=== PATIENT | male | born 1970 | race Caucasian/White ===

== ENCOUNTER 2017-09-29 13:14 | Observation (INO) ==
[2017-09-29 13:47] LABS: Basophils # 0.1 K/mcL (0.0-0.2); Basophils % 0.6 %; Eosinophils # 0.2 K/mcL (0.0-0.6); Hematocrit 43.1 % (37.5-50.1); Immature Granulocytes % 0.5 % (0-4); Lymphocytes # 1.3 K/mcL (0.6-4.6); Lymphocytes % 11.8 %; Mean Corpuscular HGB Conc 34.8 g/dL (31.6-35.5); Mean Corpuscular Hemoglobin 32.3 pg (28.0-33.3); Mean Corpuscular Volume 92.7 fL (83.0-100.0); Mean Platelet Volume 10.2 fL (9.4-12.4); Monocytes # 0.8 K/mcL (0.0-1.3); Monocytes % 7.6 %; Neutrophils # 8.2 K/mcL (1.6-8.9); Platelet Count 242 K/mcL (140-400); Red Blood Count 4.65 M/mcL (4.19-5.50); Red Cell Distribution Width 12.3 % (11.5-14.5); Segmented Neutrophils % 77.5 %
[2017-09-29 13:53] LABS: Prothrombin Time 10.6 Seconds (9.4-12.1)
[2017-09-29 13:56] LABS: Activated Partial Thrombo Time 31.8 Seconds (26.0-36.0)
--- NOTE | 2017-09-29 14:03 | Emergency Department Note ---
Disposition Clinical Impression: Symptomatic bradycardia Syncope Qualifiers: Syncope type: unspecified Qualified Code(s): R55 - Syncope and collapse Disposition: Admitted As Inpatient Condition: Good Referrals: NONE,PCP [Primary Care Provider] - Radha Estrada [Family Provider] - Forms: ED Satisfaction Letter Time of Disposition: 14:30 General Adult HPI - General Chief complaint: ED Syncope Stated complaint: syncope Time Seen by Provider: 09/29/17 13:16 Source: patient, family Limitations: altered mental status Nursing Notes Reviewed: Yes Vital Signs Reviewed: Yes - History of Present Illness HPI Narrative: Mr. Noel is a very pleasant 46-year-old gentleman who presents to the [facility] emergency department with chief complaint of syncope. at bedside reports that at approximately 11:30 AM patient was sitting on a couch and was feeling lightheaded and decided to go lay down on the bed. When he was walking to the bedroom patient fell to the ground and had a syncopal episode. Patient denies any presyncopal complaints such as headache, change in vision, chest pain, palpitations, nausea, vomiting. Patient does not remember this event. His only complaint at this time is dyspnea. No fevers, cough or recent sick contacts. Patient was purposely seen and evaluated at emergency department earlier this week on Tuesday and recommended hospital admission for further evaluation for suspected cardiac etiology. At that time, patient did decline further admission and was discharged home with cardiology follow-up. Patient is scheduled to see the manager of manufacturing this month. She does not take any prescribed medications at this time. Patient smokes 2-3 packs per day and reports occasional EtOH abuse. No illicit use. No other complaints at this time. Pain Scale: 6 - Related Data Home Medications Medication Instructions Recorded Confirmed Escitalopram [Lexapro] 10 mg PO DAILY 09/29/17 09/29/17 Gabapentin [Neurontin] 300 mg PO TID PRN 09/29/17 09/29/17 Pantoprazole Sodium [Protonix] 40 mg PO DAILY 09/29/17 09/29/17 Tramadol HCl [Ultram] 50 mg PO TID PRN 09/29/17 09/29/17 Allergies Allergy/AdvReac Type Severity Reaction Status Date / Time No Known Allergies Allergy Verified 09/29/17 15:01 Review of Systems: Constitutional: No fever Vision: No blurred vision ENT: No rhinorrhea Respiratory: No cough Cardiovascular: No chest pain Allergic: No allergies : No blood in urine GI: No blood in stool Hematologic: No bruising Dermatologic: No skin rash Musculoskeletal: No pain in the extremities Neuro: No numbness of the extremities Past Medical History - Past Medical History Medical history: Reports: no medical history, other Psychiatric history: Reports: anxiety - Social History Smoking Status: Current every day smoker Smokeless Tobacco Status: No Alcohol use: Reports: occasionally, heavy Drug use: Reports: marijuana Physical Exam CONSTITUTIONAL: Alert and oriented X3 in no apparent distress, HEAD: Normocephalic; atraumatic. EYES: Ocular movements grossly intact, no scleral icterus, no drainage, no conjunctival injection Oropharynx: pink/moist RESP: NRD without use of accessory musculature, CTA b/l with no wheezes/rales/ rhonchi CARD: Regular rhythm, without murmurs, rubs, or gallop ABD: grossly normal, soft, non-tender, no guarding/distention/rigidity SKIN: normal appearance, no pallor/diaphoresis,mottling,jaundice,cyanosis EXT: PT pulses 2+ and symmetrical; no lateralizing edema; no other lesions seen PSYCH: appropriate mood/affect - General Limitations: altered mental status General appearance: lethargic Course Course Narrative: Patient was seen and examined at bedside. Vital signs were reviewed and showed sinus bradycardia with heart rate in the 50s. Physical examination demonstrates a drowsy individual but is alert and oriented 3. He has only complaints are at this time her dyspnea. Further examination was unremarkable. Will proceed with 12 lead EKG, chest x-ray, BMP, CBC, troponin, coags. Disposition pending. 1426: EKG demonstrates sinus bradycardia. CBC, BMP, troponin and coags are all unremarkable. Chest x-ray shows no acute process. Heart rate is in the 40s to 50s at this time. Given this patient's history and presentation of 2 single episodes this past week recommended patient be admitted for observation and further cardiology workup for symptomatic bradycardia. CT head pending. Hospitalist will be paged. This disposition plan was discussed the patient understands and agrees. 1600: CT of the head shows no acute process. Discussed the case with hospitalist, Dr. Dyson, who will accept patient for admission. No further recommendations per hospital team. Vital Signs Temperature 97.7 F 05/03/18 13:20 Pulse Rate 56 09/29/17 13:20 Respiratory Rate 16 09/29/17 13:20 Blood Pressure 108/78 09/29/17 13:20 O2 Sat by Pulse Oximetry 100 09/29/17 13:20 Temperature 97.7 F 09/29/17 13:20 Pulse Rate 56 09/29/17 13:20 Respiratory Rate 16 09/29/17 13:20 Blood Pressure 108/78 09/29/17 13:20 O2 Sat by Pulse Oximetry 100 09/29/17 13:32 Oxygen Delivery Oxygen Delivery Room Air Medical Decision Making - Medical Records Medical records reviewed: Yes I reviewed the patient's medical records. - Lab Data Lab results reviewed: Yes I reviewed the patient's lab results. Result diagrams: 09/29/17 13:32 09/29/17 13:32 Lab Results 09/29/17 09/29/17 09/29/17 Range/Units 13:19 13:32 13:32 WBC 10.6 (4.3-11.1) K/mcL RBC 4.65 (4.19-5.50) M/mcL Hgb 15.0 (12.9-16.9) g/dL Hct 43.1 (37.5-50.1) % MCV 92.7 (83.0-100.0) fL MCH 32.3 (28.0-33.3) pg MCHC 34.8 (31.6-35.5) g/dL RDW 12.3 (11.5-14.5) % Plt Count 242 (140-400) K/mcL MPV 10.2 (9.4-12.4) fL Immature Gran % 0.5 (0-4) % Seg Neutrophils % 77.5 % Lymphocytes % 11.8 % Monocytes % 7.6 % Eosinophils % 2.0 % Basophils % 0.6 % Neutrophils # 8.2 (1.6-8.9) K/mcL Lymphocytes # 1.3 (0.6-4.6) K/mcL Monocytes # 0.8 (0.0-1.3) K/mcL Eosinophils # 0.2 (0.0-0.6) K/mcL Basophils # 0.1 (0.0-0.2) K/mcL PT 10.6 (9.4-12.1) Seconds INR 1.0 APTT 31.8 (26.0-36.0) Seconds Sodium (136-145) mEq/L Potassium (3.5-5.1) mEq/L Chloride (98-107) mEq/L Carbon Dioxide (23-29) mEq/L BUN (6-20) mg/dL Creatinine (0.70-1.30) mg/dL Est GFR ( Amer) (> 60) Est GFR (Non-Af Amer) (> 60) BUN/Creatinine Ratio (6-26) Glucose (70-105) mg/dL POC Glucose 105 H (70-99) mg/dL Calculated Osmolality (280-300) Calcium (8.6-10.3) mg/dL Troponin I (< 0.04) ng/mL 09/29/17 Range/Units 13:32 WBC (4.3-11.1) K/mcL RBC (4.19-5.50) M/mcL Hgb (12.9-16.9) g/dL Hct (37.5-50.1) % MCV (83.0-100.0) fL MCH (28.0-33.3) pg MCHC (31.6-35.5) g/dL RDW (11.5-14.5) % Plt Count (140-400) K/mcL MPV (9.4-12.4) fL Immature Gran % (0-4) % Seg Neutrophils % % Lymphocytes % % Monocytes % % Eosinophils % % Basophils % % Neutrophils # (1.6-8.9) K/mcL Lymphocytes # (0.6-4.6) K/mcL Monocytes # (0.0-1.3) K/mcL Eosinophils # (0.0-0.6) K/mcL Basophils # (0.0-0.2) K/mcL PT (9.4-12.1) Seconds INR APTT (26.0-36.0) Seconds Sodium 136 (136-145) mEq/L Potassium 3.7 (3.5-5.1) mEq/L Chloride 104 (98-107) mEq/L Carbon Dioxide 24 (23-29) mEq/L BUN 14 (6-20) mg/dL Creatinine 0.91 (0.70-1.30) mg/dL Est GFR ( Amer) > 60 (> 60) Est GFR (Non-Af Amer) > 60 (> 60) BUN/Creatinine Ratio 15 (6-26) Glucose 105 (70-105) mg/dL POC Glucose (70-99) mg/dL Calculated Osmolality 283 (280-300) Calcium 9.4 (8.6-10.3) mg/dL Troponin I < 0.03 (< 0.04) ng/mL - Radiology Data Radiology results reviewed: Yes I reviewed the patient's radiology results. Chest X-Ray 09/29/17 13:25 IMPRESSION: No acute cardiopulmonary pathology. D/ / Delvin Cabrera MD / Delvin Cabrera MD Interpreting Provider: Delvin Cabrera MD - EKG Data EKG #1 EKG attestation: Yes I reviewed and interpreted this EKG. EKG results narrative: Heart rate 56, VT 156, QRS 110 EC for 30 consistent with sinus bradycardia. No evidence of any T-wave or ST wave abnormalities. There is no old EKG for comparison. Attestation Statement - Attestation Attestation: I, Lukas Shepard DO, examined this patient [id number] and my medical decision-making was reviewed with Oscar Mcallister PGY-1, Resident Physician. I agree with the documented findings, disposition and treatment plan as described except to the extent set forth below. Please see my progress notes for details.
[2017-09-29 14:14] LABS: BUN/Creatinine Ratio 15 (6-26); Blood Urea Nitrogen 14 mg/dL (6-20); Calcium 9.4 mg/dL (8.6-10.3); Carbon Dioxide 24 mEq/L (23-29); Chloride 104 mEq/L (98-107); Glucose 105 mg/dL (70-105); Osmolality,Calculated 283 (280-300); Potassium 3.7 mEq/L (3.5-5.1); Sodium 136 mEq/L (136-145); Troponin I < 0.03 ng/mL (< 0.04); eGFR For African Americans > 60 (> 60); eGFR For Non-African Americans > 60 (> 60)
--- NOTE | 2017-09-29 14:37 | Emergency Department Note ---
Disposition Clinical Impression: Symptomatic bradycardia Syncope Qualifiers: Syncope type: unspecified Qualified Code(s): R55 - Syncope and collapse Disposition: Admitted As Inpatient Condition: Fair Referrals: NONE,PCP [Primary Care Provider] - Radha Estrada [Family Provider] - Forms: ED Satisfaction Letter Time of Disposition: 14:42 General Adult HPI - General Chief complaint: ED Syncope Stated complaint: syncope Time Seen by Provider: 09/29/17 13:16 Source: patient, family Limitations: altered mental status - History of Present Illness Pain Scale: 6 Past Medical History - Past Medical History Medical history: Reports: no medical history, other Psychiatric history: Reports: anxiety - Social History Smoking Status: Current every day smoker Smokeless Tobacco Status: No Alcohol use: Reports: occasionally, heavy Drug use: Reports: marijuana Physical Exam - General Limitations: altered mental status General appearance: lethargic Course Vital Signs Temperature 97.7 F 09/29/17 13:20 Pulse Rate 56 09/29/17 13:20 Respiratory Rate 16 09/29/17 13:20 Blood Pressure 108/78 09/29/17 13:20 O2 Sat by Pulse Oximetry 100 09/29/17 13:20 Temperature 97.7 F 09/29/17 13:20 Pulse Rate 56 09/29/17 13:20 Respiratory Rate 16 09/29/17 13:20 Blood Pressure 108/78 09/29/17 13:20 O2 Sat by Pulse Oximetry 100 09/29/17 13:32 Oxygen Delivery Oxygen Delivery Room Air Medical Decision Making - Lab Data Result diagrams: 09/29/17 13:32 09/29/17 13:32 Lab Results 09/29/17 09/29/17 09/29/17 Range/Units 13:19 13:32 13:32 WBC 10.6 (4.3-11.1) K/mcL RBC 4.65 (4.19-5.50) M/mcL Hgb 15.0 (12.9-16.9) g/dL Hct 43.1 (37.5-50.1) % MCV 92.7 (83.0-100.0) fL MCH 32.3 (28.0-33.3) pg MCHC 34.8 (31.6-35.5) g/dL RDW 12.3 (11.5-14.5) % Plt Count 242 (140-400) K/mcL MPV 10.2 (9.4-12.4) fL Immature Gran % 0.5 (0-4) % Seg Neutrophils % 77.5 % Lymphocytes % 11.8 % Monocytes % 7.6 % Eosinophils % 2.0 % Basophils % 0.6 % Neutrophils # 8.2 (1.6-8.9) K/mcL Lymphocytes # 1.3 (0.6-4.6) K/mcL Monocytes # 0.8 (0.0-1.3) K/mcL Eosinophils # 0.2 (0.0-0.6) K/mcL Basophils # 0.1 (0.0-0.2) K/mcL PT 10.6 (9.4-12.1) Seconds INR 1.0 APTT 31.8 (26.0-36.0) Seconds Sodium (136-145) mEq/L Potassium (3.5-5.1) mEq/L Chloride (98-107) mEq/L Carbon Dioxide (23-29) mEq/L BUN (6-20) mg/dL Creatinine (0.70-1.30) mg/dL Est GFR ( Amer) (> 60) Est GFR (Non-Af Amer) (> 60) BUN/Creatinine Ratio (6-26) Glucose (70-105) mg/dL POC Glucose 105 H (70-99) mg/dL Calculated Osmolality (280-300) Calcium (8.6-10.3) mg/dL Troponin I (< 0.04) ng/mL 09/29/17 Range/Units 13:32 WBC (4.3-11.1) K/mcL RBC (4.19-5.50) M/mcL Hgb (12.9-16.9) g/dL Hct (37.5-50.1) % MCV (83.0-100.0) fL MCH (28.0-33.3) pg MCHC (31.6-35.5) g/dL RDW (11.5-14.5) % Plt Count (140-400) K/mcL MPV (9.4-12.4) fL Immature Gran % (0-4) % Seg Neutrophils % % Lymphocytes % % Monocytes % % Eosinophils % % Basophils % % Neutrophils # (1.6-8.9) K/mcL Lymphocytes # (0.6-4.6) K/mcL Monocytes # (0.0-1.3) K/mcL Eosinophils # (0.0-0.6) K/mcL Basophils # (0.0-0.2) K/mcL PT (9.4-12.1) Seconds INR APTT (26.0-36.0) Seconds Sodium 136 (136-145) mEq/L Potassium 3.7 (3.5-5.1) mEq/L Chloride 104 (98-107) mEq/L Carbon Dioxide 24 (23-29) mEq/L BUN 14 (6-20) mg/dL Creatinine 0.91 (0.70-1.30) mg/dL Est GFR ( Amer) > 60 (> 60) Est GFR (Non-Af Amer) > 60 (> 60) BUN/Creatinine Ratio 15 (6-26) Glucose 105 (70-105) mg/dL POC Glucose (70-99) mg/dL Calculated Osmolality 283 (280-300) Calcium 9.4 (8.6-10.3) mg/dL Troponin I < 0.03 (< 0.04) ng/mL Attestation Statement - Attestation Attestation: I, Lukas Shepard DO, examined this patient [id number] and my medical decision-making was reviewed with Oscar Mcallister PGY-1, Resident Physician. I agree with the documented findings, disposition and treatment plan as described except to the extent set forth below. Please see my progress notes for details. 46-year-old male presents to the emergency room for evaluation of syncopal event. Patient has been seen once within the last week and was recommended to be admitted but he declined again set recommendation at outside facility. Patient was at this morning and had prodromal symptoms including some lightheadedness dizziness and tunnel vision. He then passed out. Does not remember the events. On arrival here his vital signs remained stable outside of stable sinus bradycardia. His blood pressure stable in transport his Accu- Chek was normal. On presentation here the patient is resting comfortably in the bed is in no distress he denies any other symptoms or complaints. Head is atraumatic pupils are equal round reactive extraocular muscles are intact. Lungs are clear to auscultation heart is regular but bradycardic abdomen is soft nontender nondistended with no guarding no rigidity no peritoneal symptoms. Patient denies any substance abuse or drugs of abuse at this time. He moves all 4 of his extremities with appropriate sensation and motor function. Patient does not have any acute pathology noted at this time on examination. CT imaging of the head chest x-ray EKG labs including CBC chemistry and troponin will be ordered along with the lecture lites and thyroid. Patient will most require admission secondary to a outpatient failure management as well as a repeat syncopal event of unknown etiology. Patient is low risk for intracranial pathology did not hit his head and has no pain at this point. Disposition pending the full workup and evaluation. See detailed documentation of the physical exam, medical intervention, medical decision- making and disposition in the resident physician's note. Care provider patient' s treatment course at this time 1425 Patient has negative workup at this time chest x-ray stable. Blood pressures been normal. Heart rate is fluctuated from 42-56 bpm. Symptoms at this point appear to be concerning for symptomatic bradycardia causing syncope here today. Patient was advised we will recommend admission for further evaluation cardiac treatment. He is comfortable this plan. Patient will be admitted to hospitals. Lengthy discussion will be had with the presentation symptoms and history. Patient is otherwise stable. Hospitals except without any other recommendations at this time.
--- NOTE | 2017-09-29 16:31 | Internal Med History&Physical ---
Date of Encounter: 09/29/17 Time of Encounter: 16:28 Internal Medicine - H&P: HPI Chief complaint: syncope Admitted From: Emergency Dept Plans for Post Hospital Care: Home History of present illness: Mr. Noel is a 46 year old male Patient with no significant medical problem except for anxiety and smoking history Ppatient second presented to emergency room for syncope patient stated he has been feeling very lightheaded and very tired lately and had passed out and came to emergency room evaluated and then discharged he again today felt lightheaded and dizzy today and then passed out for a few minutes and then presented emergency room denies any chest pain no seizure activity no prior history of seizure In emergency room heart rate is in the low 50s blood pressure low 100. Labs unremarkable patient will be admitted for further evaluation of syncope. Past Med Surg Social Fam HX - Past Medical History Medical history: no medical history, other Psychiatric history: anxiety - Social History Smoking Status: Current every day smoker Smokeless Tobacco Status: No Alcohol use: occasionally, heavy Drug use: marijuana Internal Medicine - H&P: Meds Escitalopram [Lexapro] 10 mg PO DAILY 09/29/17 [History] Gabapentin [Neurontin] 300 mg PO TID PRN 09/29/17 [History] Pantoprazole Sodium [Protonix] 40 mg PO DAILY 09/29/17 [History] Tramadol HCl [Ultram] 50 mg PO TID PRN 09/29/17 [History] 3 Allergy/AdvReac Type Severity Reaction Status Date / Time No Known Allergies Allergy Verified 09/29/17 15:01 All Systems PM: A 10-system review of systems was performed and is negative for pertinent findings except as documented above in the HPI. - Constitutional Constitutional: no chills, no fever(s), no night sweats - EENT Eyes: no change in vision, no discharge, no pain, no photophobia Ears: no ear discharge, no ear pain, no tinnitus Nose, mouth and throat: no dysphagia, no nasal discharge, no neck pain, no sore throat - Cardiovascular Cardiovascular ROS IM: syncope - Respiratory Respiratory: no cough, no dyspnea, no wheezing, no excessive phlegm production - Gastrointestinal Gastrointestinal: no abdominal pain, no diarrhea, no hematemesis, no hematochezia, no melena, no nausea, no vomiting - Musculoskeletal Musculoskeletal ROS IM: no numbness, no tingling - Integumentary Integumentary IM: no rash, no unusual bruising - Neurological Neurological ROS: no confusion, no convulsions, no focal weakness, no numbness, no tingling, no tremor(s) - Constitutional Vitals: Temp Pulse Resp BP Pulse Ox 97.7 F 53 15 104/73 97 09/29/17 13:20 09/29/17 16:01 09/29/17 16:01 09/29/17 16:01 09/29/17 16:01 - Head Head exam: Present: atraumatic, normocephalic - Eye Eye exam: Present: PERRL, conjuntiva pink, sclera anicteric Pupils: Present: PERRL - Neck Neck exam general surgery: Present: supple, trachea midline. Absent: lymphadenopathy - Respiratory Respiratory exam: Present: CTAB. Absent: accessory muscle use, rales, rhonchi, wheezes - Cardiovascular Cardiovascular exam: Present: RRR, +S1, +S2. Absent: diastolic murmur, gallop, rubs, systolic murmur - GI/Abdominal GI/Abdominal exam: Present: normal bowel sounds, soft, no peritoneal signs. Absent: distended, tenderness - Extremities Exam Extremities exam: Present: warm, radial pulses palpable and symmetrical. Absent : calf tenderness, cyanotic, pedal edema - Neurological Exam Neurological exam: Present: CN II-XII intact, oriented X3, no focal deficits. Absent: pronater drift, facial droop, speech deficit - Skin Skin exam: Present: dry, intact Internal Med - H&P Results - Labs CBC & Chem 7: 09/29/17 13:32 09/29/17 13:32 - Assessment and plan (1) Bradycardia Current Visit: Yes Status: Acute Assessment and plan: Sinus bradycardia unclear if any relationship to syncope will check thyroid profile and continue to monitor may need outpatient Holter monitor (2) Syncope Current Visit: Yes Status: Acute Assessment and plan: Presentation that is suggestive of vasodepressive syncope versus orthostatic hypotension blood pressure is low 100 patient had prodromal symptoms of lightheadedness and feeling tired in the last few weeks Clinically given IV hydration and monitor check orthostatic blood pressure Qualifiers: Syncope type: unspecified Qualified Code(s): R55 - Syncope and collapse (3) Anxiety Current Visit: Yes Status: Chronic Assessment and plan: Chronic we will resume home medication - Time Spent With Patient Total time spent is greater than 50% in coordination of care (as documented) at patient's floor/unit and/or counseling patient:
[2017-09-29] MEDS ORDERED: traMADol 50 MG TABLET PO PRN (16:35)
[2017-09-29] MEDS ORDERED: Acetaminophen 325 MG TABLET PO PRN (16:35)
[2017-09-29] MEDS ORDERED: Naloxone 0.4 MG/ML INJ IVP PRN (16:35)
[2017-09-29] MEDS ORDERED: Gabapentin 300 MG CAPSULE PO PRN (16:38)
[2017-09-29 17:00] LABS: Thyroid Stimulating Hormone 1.895 mcIU/mL (0.340-5.600)
[2017-09-29] MEDS: 0.9 % Sodium Chloride 1,000 ML IVC SCH (18:30)
[2017-09-30 01:50] LABS: Alanine Aminotransferase 15 Units/L (7-52); Albumin 4.2 g/dL (3.5-5.7); Albumin/Globulin Ratio 1.7 (1.1-2.2); Alkaline Phosphatase 57 Units/L (34-104); Aspartate Amino Transferase 17 Units/L (13-39); BUN/Creatinine Ratio 16 (6-26); Bilirubin,Total 0.4 mg/dL (0.3-1.0); Blood Urea Nitrogen 15 mg/dL (6-20); Calcium 9.1 mg/dL (8.6-10.3); Carbon Dioxide 26 mEq/L (23-29); Chloride 107 mEq/L (98-107); Chol/HDL Ratio 3.7 (0-4.9); Cholesterol 158 mg/dL (< 200); Globulin 2.5 g/dL (2.4-3.5); Glucose 100 mg/dL (70-105); HDL Cholesterol 43 mg/dL (40-59); LDL Cholesterol,Calculated 94 mg/dL (0-99); Magnesium 2.1 mg/dL (1.6-2.6); Osmolality,Calculated 289 (280-300); Potassium 4.2 mEq/L (3.5-5.1); Sodium 139 mEq/L (136-145); Total Protein 6.7 g/dL (6.4-8.9); Triglycerides 103 mg/dL (< 150); eGFR For African Americans > 60 (> 60); eGFR For Non-African Americans > 60 (> 60)
[2017-09-30] MEDS: 0.9 % Sodium Chloride 1,000 ML IVC SCH (04:46)
--- NOTE | 2017-09-30 09:00 | Electrocardiograph Report ---
[address] [place], [place] [address] Test Date: 2017-09-29 Pat Name: Andrew Noel Department: 104 Room: 3B Gender: M Third Rigger: FAY : 1970 Requested By: Gerber Mcallister Order Number: [id number] Reading MD: Aubrey Cohen Measurements Intervals Kenna Rate: 56 P: 7 OK: 156 QRS: 59 QRSD: 110 T: 59 QT: 439 QTc: 430 Interpretive Statements SINUS BRADYCARDIA BASELINE ARTIFACT Electronically Signed On 09-30-2017 8:58:22 EDT by Aubrey Cohen
[2017-09-30] MEDS ORDERED: Regadenoson 0.4 MG/5 ML SYRINGE IVP ONE (12:03)
--- NOTE | 2017-09-30 12:48 | Cardiology Consult Note ---
<Yao Rosario - Last Filed: 09/30/17 12:40> Date of Encounter: 09/30/17 Time of Encounter: 12:40 Assessment and Plan (1) Chest pain Current Visit: Yes Status: Acute Admits to exertional chest pain at times. He also has experienced two syncopal events. EKG shows sinus bradycardia. No acute ST changes. Cardiac risk factors include tobacco use and prior heavy ETOH use. TTE reviewed- preserved EF. Recommend stress test. Unable to ambulate on treadmill due to a nail in his foot. Qualifiers: Chest pain type: unspecified Qualified Code(s): R07.9 - Chest pain, unspecified (2) Bradycardia Current Visit: Yes Status: Acute HR in the 50's noted. AVg HR 52 bpm. HE as low as 37 bpm noted during nocturnal hours. No pauses or heart block seen, Unclear if symptoms are from bradycardia. TSH normal. Avoid a AV delgado lamin. Consider holter at discharge. (3) Syncope Current Visit: Yes Status: Acute S/p witness syncopal event and possible second event. TTE shows preserved EF. No significant valvular disease. Orthostatic vital negative. Noted to have sinus bradycardia. HR in the 50's. Unclear if related. Consider holter at discharge. Stress test ordered for c/o chest pain. Possible vasovagal event, patient in pain due to stepping on nail at time of event. Qualifiers: Syncope type: unspecified Qualified Code(s): R55 - Syncope and collapse Discussion w patient/family: The assessment and plan as outlined above was discussed with the patient and/or family members who expressed understanding and agreement. All questions were answered. Thank you for involving us in the care of your patient. Please call with any questions. History of Present Illness Consult date: 09/30/17 Requesting physician: Rachel Vargas Consult reason: syncope Chief complaint: syncope History of present illness: Mr. Noel is a 46 year old male with past medical history of tobacco use and cervical stenosis who presented after passing out at home. On 09/26/17 he was sitting in a chair after stepping on a nail when he started to feel unwell and lightheaded. He passed out and feel on the floor. The episode was witnessed by a friend. He did go to [facility] and had EKG and CTA that showed no concerning findings. Per [facility] medical report he was noted to have HR 45- 60 bpm. Yesterday he says he laid down due to feeling lightheaded after eating a sandwich and felt like he passed out. He also c/o dizziness when bending over or standing up to quickly. He c/o intermittent chest pressure with exertional activity that is relieved with rest. C/o increasing fatigue and decreased activity tolerance. Past Med Surg Social Fam HX - Past Medical History Medical history: no medical history, other Psychiatric history: anxiety - Social History Smoking Status: Current every day smoker Packs per day: 1-2 Smokeless Tobacco Status: No Alcohol use: occasionally, heavy Drug use: marijuana Medications and Allergies Escitalopram [Lexapro] 10 mg PO DAILY 09/29/17 [History] Gabapentin [Neurontin] 300 mg PO TID PRN 09/29/17 [History] Pantoprazole Sodium [Protonix] 40 mg PO DAILY 09/29/17 [History] Tramadol HCl [Ultram] 50 mg PO TID PRN 09/29/17 [History] 3 Allergy/AdvReac Type Severity Reaction Status Date / Time No Known Allergies Allergy Verified 09/29/17 15:01 All Systems Review: The remainder of the systems were reviewed and are negative Physical Examination Vital Signs, Last 4 Hours Temp Pulse Resp BP Pulse Ox 09/30/17 10:50 97.6 F 54 15 107/70 96 General: Conversant, No Apparent Distress HEENT: Atraumatic, Normocephaly, Mucus Membranes Moist Neck: No JVD, Normal carotid pulses Cardiac: Reg Rate and Rhythm, Normal S1 and S2, No Murmur Lungs: Normal Breath Sounds, No Wheeze, Rales, Rhonchi Neuro: Alert and responsive, No focal deficits noted Abdomen: Soft, Non-Tender Skin: No rashes noted on visualized skin Musculoskeletal: No Chest Wall Tenderness Extremities: No Clubbing, No Cyanosis, No Edema, Normal Pulses Results 09/29/17 13:32 09/30/17 01:07 Lab Results 09/29/17 09/30/17 09/30/17 19:41 01:07 01:07 Sodium 139 Potassium 4.2 Chloride 107 Carbon Dioxide 26 BUN 15 Creatinine 0.96 Glucose 100 Calcium 9.1 Magnesium 2.1 Total Bilirubin 0.4 AST 17 ALT 15 Alkaline Phosphatase 57 Troponin I < 0.03 < 0.03 B-Natriuretic Peptide 09/30/17 09/30/17 01:07 05:42 Sodium Potassium Chloride Carbon Dioxide BUN Creatinine Glucose Calcium Magnesium Total Bilirubin AST ALT Alkaline Phosphatase Troponin I < 0.03 B-Natriuretic Peptide 24 - Imaging and Cardiology Echo: report reviewed - EKG Interpretation EKG results cardiology: personally reviewed Consult Discharge Plan - Plan Referrals: NONE,PCP [Primary Care Provider] - Radha Estrada [Family Provider] - <Isabella Arias - Last Filed: 09/30/17 16:39> Date of Encounter: 09/30/17 - Attending Attestation I examined this patient and my medical decision-making was reviewed with the LICENSED PHYSICAL THERAPIST. I agree with the documented findings, disposition and treatment plan as described. Mr. Noel presents with a syncopal event which appears to be vasovagal in origin. He had just stepped on a nail and was in pain. He denies prior episodes of syncope but reports having a history of lightheadedness when entering the shower occasionally and sometimes after sexual intercourse. I suspect a vasovagal origin. Have asked him to avoid particular stressors, stay well hydrated Due to intermittent chest pains, a stress test was ordered demonstrating a reversible ischemic defect involving the apex. This was discussed with the patient. Risk factors include male gender and long history of smoking. The R/B /A of the procedure were discussed in detail. He expressed understanding and would like to contemplate his options. Will keep NPO for possible procedure in AM. For now, start asa. Hold off on statin - LDL 94. Assessment and Plan Discussion w patient/family: The assessment and plan as outlined above was discussed with the patient and/or family members who expressed understanding and agreement. All questions were answered. Thank you for involving us in the care of your patient. Please call with any questions. History of Present Illness History of present illness: Mr. Noel is a 46 year old male All Systems Review: The remainder of the systems were reviewed and are negative Physical Examination Vital Signs, Last 4 Hours Temp Pulse Resp BP Pulse Ox 09/30/17 15:02 97.9 F 66 16 110/62 98 Results 09/29/17 13:32 09/30/17 01:07 Lab Results 09/29/17 09/30/17 09/30/17 19:41 01:07 01:07 Sodium 139 Potassium 4.2 Chloride 107 Carbon Dioxide 26 BUN 15 Creatinine 0.96 Glucose 100 Calcium 9.1 Magnesium 2.1 Total Bilirubin 0.4 AST 17 ALT 15 Alkaline Phosphatase 57 Troponin I < 0.03 < 0.03 B-Natriuretic Peptide 09/30/17 09/30/17 01:07 05:42 Sodium Potassium Chloride Carbon Dioxide BUN Creatinine Glucose Calcium Magnesium Total Bilirubin AST ALT Alkaline Phosphatase Troponin I < 0.03 B-Natriuretic Peptide 24
--- NOTE | 2017-09-30 17:30 | Internal Med Progress Note ---
Date of Encounter: 09/30/17 Time of Encounter: 17:28 - Assessment and plan (1) Chest pain Current Visit: Yes Status: Acute Assessment and plan: Patient admits to chest pain at times. Not expressing any chest pain now. Denies any chest pain during syncopal events. He was noted to have 2 syncopal events throughout the last week. EKG shows sinus bradycardia with no ST changes. TTE completed-preserved ejection fraction Patient was recommended to undergo stress test this afternoon-stress test found to be positive for ischemia Plan for [facility] tomorrow morning, nothing by mouth after midnight TSH was checked due to bradycardia and found to be within normal limits Qualifiers: Chest pain type: unspecified Qualified Code(s): R07.9 - Chest pain, unspecified (2) Symptomatic bradycardia Current Visit: Yes Status: Acute Assessment and plan: Witnessed syncopal events No prior history of bradycardia TSH normal, avoid AV delgado blockers per cardiology and consider Holter monitor at discharge (3) Syncope Current Visit: Yes Status: Acute Assessment and plan: Patient has had 2 syncopal events over the last week TTE shows preserved EF with no significant valvular disease Orthostatic negative Patient underwent a stress test this afternoon was found to have ischemia; cardiac mediated syncope Qualifiers: Syncope type: unspecified Qualified Code(s): R55 - Syncope and collapse (4) Anxiety Current Visit: Yes Status: Chronic Assessment and plan: Continue anxiolytics (5) Puncture wound of foot Current Visit: Yes Status: Acute Assessment and plan: Patient reports that he stepped on a nail couple of days ago and has a puncture wound of the foot Was given tetanus series at [facility]; antibiotics no started at that time Start patient on Levaquin 750 mg by mouth daily 5 days for prophylaxis Qualifiers: Laterality: unspecified laterality Qualified Code(s): S91.339A - Puncture wound without foreign body, unspecified foot, initial encounter - Time Spent With Patient Total time spent is greater than 50% in coordination of care (as documented) at patient's floor/unit and/or counseling patient: Greater than 35 minutes - Subjective Interval history: Mr. Noel is a 46-year-old male with past medical history of tobacco abuse, cervical stenosis. He presented to [place] with concerns for syncope. He reports that on 09/26/17 he was sitting in a chair after stepping on a nail looking at his foot began to feel unwell and lightheaded. He reports that is when he passed out and fell to the floor. He was seen at an and EKG and CTA showed no concerning findings. Yesterday he noticed that his symptoms began to worsen. He began to feel very lightheaded and again passed out. Patient seen and examined at bedside today continues to endorse dizziness and foot pain from puncture wound. Denies any current chest pain or shortness of breath. - Constitutional Vitals: Temp Pulse Resp BP Pulse Ox 97.9 F 66 16 110/62 98 09/30/17 15:02 09/30/17 15:02 09/30/17 15:02 09/30/17 15:02 09/30/17 15:02 General appearance: Present: A&O X 3 - Head Head exam: Present: atraumatic, normocephalic - Eye Eye exam: Present: PERRL, conjuntiva pink, sclera anicteric Pupils: Present: PERRL - Neck Neck exam general surgery: Present: supple, trachea midline. Absent: lymphadenopathy - Respiratory Respiratory exam: Present: CTAB. Absent: accessory muscle use, rales, rhonchi, wheezes - Cardiovascular Cardiovascular exam: Present: RRR, +S1, +S2. Absent: diastolic murmur, gallop, rubs, systolic murmur - GI/Abdominal GI/Abdominal exam: Present: normal bowel sounds, soft, no peritoneal signs. Absent: distended, tenderness - Extremities Exam Extremities exam: Present: warm, radial pulses palpable and symmetrical. Absent : calf tenderness, cyanotic, pedal edema - Neurological Exam Neurological exam: Present: CN II-XII intact, oriented X3, no focal deficits. Absent: pronater drift, facial droop, speech deficit - Skin Skin exam: Present: dry, intact Internal Medicine: Result - Labs CBC & Chem 7: 09/29/17 13:32 09/30/17 01:07 Labs: BMP 09/30/17 01:07 Sodium 139 Potassium 4.2 Chloride 107 Carbon Dioxide 26 BUN 15 Creatinine 0.96 Glucose 100 Calcium 9.1 Cardiac Enzymes 09/29/17 09/30/17 09/30/17 Range/Units 19:41 01:07 05:42 Troponin I < 0.03 < 0.03 < 0.03 (< 0.04) ng/mL Liver Function 09/30/17 Range/Units 01:07 Total Bilirubin 0.4 (0.3-1.0) mg/dL AST 17 (13-39) Units/L ALT 15 (7-52) Units/L Alkaline Phosphatase 57 (34-104) Units/L Albumin 4.2 (3.5-5.7) g/dL - ABG Interpretation ABG results: PT/INR, D-dimer PT 10.6 Seconds (9.4-12.1) 09/29/17 13:32 - Impressions Impressions Echocardiogram 09/29/17 16:38 Impressions: LVEF 50-55%. Normal left ventricular diastolic function. No significant valvular dysfunction. Left Ventricular Wall Motion: Rest Echo Findings All wall segments showed normal motion. Findings: Study Quality * Technically adequate exam. Left Atrium * Normal left atrial size. Right Atrium * Normal right atrial size. Aortic Valve * Trileaflet aortic valve with normal function. Mitral Valve * Normal mitral valve structure and function. Interatrial Septum * No evidence of PFO by color Doppler. Aorta * Normally sized aortic root. Pericardium * The pericardium appears normal. ECG Findings * Sinus bradycardia. Pulmonic Valve * No pulmonic stenosis. * No pulmonic regurgitation. * Pulmonic valve is not well visualized. Tricuspid Valve * Trace tricuspid regurgitation. * No tricuspid stenosis. * Estimated RVSP is 17 mmHg. * No pulmonary hypertension. Left Ventricle * LVEF 50-55%. * Normal left ventricular diastolic function. Right Ventricle * Mildly dilated right ventricle with normal function IVC * Normal IVC dimensions and inspiratory collapse. Consult Discharge Plan - Plan Referrals: NONE,PCP [Primary Care Provider] - Radha Estrada [Family Provider] -
[2017-09-30] MEDS: levoFLOXacin 750 MG TABLET PO SCH (21:45)
--- NOTE | 2017-10-01 07:59 | Event Note ---
Date of Encounter: 10/01/17 Time of Encounter: 08:00 - Cardiology Event Note ITS Impressions Chest X-Ray 09/29/17 13:25 IMPRESSION: No acute cardiopulmonary pathology. D/ / Delvin Cabrera MD / Delvin Cabrera MD Interpreting Provider: Delvin Cabrera MD Head CT 09/29/17 15:33 IMPRESSION: No acute intracranial abnormality. D/ / Khurram Martínez DO / Khurram Martínez DO Interpreting Provider: Khurram Martínez DO Echocardiogram 09/29/17 16:38 Impressions: LVEF 50-55%. Normal left ventricular diastolic function. No significant valvular dysfunction. Left Ventricular Wall Motion: Rest Echo Findings All wall segments showed normal motion. Findings: Study Quality * Technically adequate exam. Left Atrium * Normal left atrial size. Right Atrium * Normal right atrial size. Aortic Valve * Trileaflet aortic valve with normal function. Mitral Valve * Normal mitral valve structure and function. Interatrial Septum * No evidence of PFO by color Doppler. Aorta * Normally sized aortic root. Pericardium * The pericardium appears normal. ECG Findings * Sinus bradycardia. Pulmonic Valve * No pulmonic stenosis. * No pulmonic regurgitation. * Pulmonic valve is not well visualized. Tricuspid Valve * Trace tricuspid regurgitation. * No tricuspid stenosis. * Estimated RVSP is 17 mmHg. * No pulmonary hypertension. Left Ventricle * LVEF 50-55%. * Normal left ventricular diastolic function. Right Ventricle * Mildly dilated right ventricle with normal function IVC * Normal IVC dimensions and inspiratory collapse. Laboratory Tests 09/29/17 09/29/17 09/30/17 13:32 19:41 01:07 Troponin I < 0.03 < 0.03 < 0.03 B-Natriuretic Peptide LDL Cholesterol, Calc TSH 1.895 09/30/17 09/30/17 09/30/17 01:07 01:07 05:42 Troponin I < 0.03 B-Natriuretic Peptide 24 LDL Cholesterol, Calc 94 TSH Plan for [facility] today.
[2017-10-01] MEDS ORDERED: *HR* Heparin 10,000 UNIT/10 ML VIAL ONE ×2 (08:42→08:54)
[2017-10-01] MEDS ORDERED: ISOVUE-370 200 ML INFUS..BTL IV ONE (08:42)
[2017-10-01] MEDS ORDERED: Heparin 1,000 UNITS/500 mL 500 ML ONE (08:42)
[2017-10-01] MEDS ORDERED: Nitroglycerin 1,000 MCG/10 ML VIAL IV ONE (08:42)
[2017-10-01] MEDS ORDERED: 0.9 % Sodium Chloride 1,000 ML ONE ×2 (08:42→09:14)
[2017-10-01] MEDS ORDERED: Verapamil 5 MG/2 ML VIAL ONE (08:55)
[2017-10-01] MEDS ORDERED: *HR* Midazolam HCl 2 MG/2 ML VIAL ONE ×2 (09:14→09:29)
[2017-10-01] MEDS ORDERED: *HR* FentaNYL (PF) 100 MCG/2 ML VIAL ONE (09:14)
--- NOTE | 2017-10-01 09:27 | Pre-Sedation Evaluation ---
Pre-sedation evaluation - Pre-sedation checklist Date of procedure: 10/01/17 Procedure: [facility] Recent Vitals: Last Vital Signs Temp 98.1 F 10/01/17 02:55 Pulse 48 10/01/17 02:55 Resp 16 10/01/17 02:55 BP 103/64 10/01/17 02:55 Pulse Ox 96 10/01/17 02:55 H&P (including ROS) documented in medical record: Yes Previous reaction to sedatives/anesthetics: No Dietary Status: NPO after Midnight Dentition: No loose teeth or bridges ASA Classification *see protocol: CLASS II-Mild systemic disease Plan of Care: Pt appropriate candidate for procedure/moderate/conscious sedation , Risks/benefits of procedure/sedation discussed w/ patient/family
[2017-10-01] MEDS ORDERED: Ondansetron 4 MG/2 ML VIAL IVP PRN (09:50)
--- NOTE | 2017-10-01 09:57 | Event Note ---
Date of Encounter: 10/01/17 Time of Encounter: 09:50 - Cardiology Event Note Per discussion with Dr. Cohen, mild nonobstructive CAD. Seen for syncope as well : 24 hr tele reviewed with average heart rate 56, lowest heart rate 48 during nocturnal hours, no significant events or pauses noted. Cardiology will s/o, re -consult PRN, f/u with Cardiology arranged to monitor his syncope (can consider in outpatient setting if further holter or event warranted).
--- NOTE | 2017-10-01 10:05 | Invasive Diagnostic Lab Proc ---
Name: Andrew Noel Date of Study: 10/01/2017 Date: 1970 Ht: 72.8in Medical Record#: [id number] Age: 46 Wt: 178.57lb Gender: Male BSA: 2.05 Order #: [id number] BMI: 23.67 Physicians Procedure Physician: Aubrey Cohen MD, [facility] Referring MD: Referring MD: Staff Name Position Time In Aishwarya Leon RT (R) Monitor 09:22 AM Milli Johnson RT (R) Scrub 09:22 AM Elaine Pryor RN [employer] 09:22 AM Indications Indication Abnormal Test - Stress Procedures Performed Procedure L HRT ARTERY/VENTRICLE ANGIO Pre-Procedure Checklist Informed consent is complete signed and on chart. H&P is on chart. ID band is on and ID verified with patient. Patient NPO for procedure The procedure was described for the patient and questions were answered. ECG is on chart. Plan of Care Patient will tolerate the procedure without complications. Adequate level of comfort will be maintained. Hemodynamics will remain stable Patient will recover from procedure without complications. Respiratory function will be maintained. Cardiac rhythm will remain stable. Patient temperature will be maintained. Patient and/or family have verbalized understanding of the procedure. Patient Education Chief Complaint/Reason for Test: Cardiac Cath Developmental Category: Adult (18-64 years) Developmentally Appropriate for Age: Yes Learning Barriers: None Education Needs: Procedure Education Method: Verbal Information Taught: Cardiac Cath Educational Evaluation: Able to repeat information Intravenous Access Time IV Size Location DC'd Fluid/Drip Rate Units RN 09:10 AM Rt Wrist 0.9NaCl 25 ml/hr Allergies No Known Allergies Vital Signs Time BP (mmHg) HR (bpm) O2 Sat. RR (bpm) LOC 09:24 AM / % 4 = Oriented but drowsy 09:24 AM / % 4 = Oriented but drowsy 09:18 AM 120 / 69 55 100 % 09:23 AM 114 / 69 59 100 % 09:28 AM 103 / 68 59 97 % 09:33 AM 104 / 66 57 95 % 09:38 AM 102 / 60 64 95 % 09:43 AM 104 / 57 61 95 % 09:48 AM 103 / 63 53 95 % 16 4 = Oriented but drowsy Procedural Medications Time Medication Dose Units Method Given By 09:23 AM Oxygen 2 L/min nasal cannula Elaine Pryor RN 09:23 AM Versed 2 mg Intravenous Elaine Pryor RN 09:23 AM Fentanyl 50 mcg Intravenous Elaine Pryor RN 09:29 AM Lidocaine 2% 0.5 ml Subcutaneous Aubrey Cohen MD, [facility] 09:29 AM Versed 2 mg Intravenous Elaine Pryor RN 09:30 AM Fentanyl 25 mcg Intravenous Elaine Pryor RN 09:35 AM Heparin 4000 units Nitroglycerin 200 mcg Verapamil 2.5 mg Intraarterial Aubrey Cohen MD, [facility] ASA Classification: CLASS II- Mild systemic disease (i.e. well-controlled diabetes, hypertension, asthma, cigarette smoking) Malvin Score Preprocedure Postprocedure Activity 2- Moves 4 extremities sustained head lift Activity 2- Moves 4 extremities sustained head lift Circulation 2- SBP +/= 20 points of pre-anesthetic level Circulation 2- SBP +/= 20 points of pre-anesthetic level Consciousness 2- Awake and alert oriented x 3 Consciousness 2- Awake and alert oriented x 3 O2 Saturation 2- Able to maintain O2 satruation of 92% on room air O2 Saturation 2- Able to maintain O2 satruation of 92% on room air Respiratory 2- Able to deep breathe and cough well Respiratory 2- Able to deep breathe and cough well Total Score 10 Total Score 10 Contrast Agent: Isovue Diagnostic Contrast: 43 ml Total Contrast: 43 ml Fluoro Dose: 147 mGy Procedure Log Time Note Enter By 09:17 AM CathStat 09:17 AM Vitals capture started with the following parameters, Patient=Adult, Interval=5 min, Initial Wmguibmg=497 mmHg, Deflation Rate=5 mmHg, Cuff placed on Right Arm 09:18 AM HR=55 bpm, NKGM=094/69 mmhg, SeA5=816.0 %, Comment=NSR 09:22 AM 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 09[facility] AM Patient charges- Angio tray pack, Navilyst 3mm J, Pulse Oximetry and ACIST tubing and transducer [email or web address] 09:23 AM HR=59 bpm, IVZA=898/69 mmhg, OrT2=279.0 %, Comment=NSR 09:23 AM Case Delayed No [email or web address] 09:23 AM Hair removed from procedure site in holding area using clippers. Right wrist prepped with Chloraprep by Aishwarya Leon (R), then patient was draped. Skin intact. [email or web address] 09:23 AM Hair removed from procedure site in holding area using clippers. Right groin prepped with Chloraprep by Aishwarya Leon (R), then patient was draped. Skin intact. [email or web address] 09:23 AM Physician arrived : [email or web address] 09:23 AM ASA Class CLASS II- Mild systemic disease (i.e. well-controlled diabetes, hypertension, asthma, cigarette smoking) [email or web address] 09:23 AM Meet and greet completed [email or web address] 09:23 AM Sign in performed according to hospital policy. [email or web address] 09:23 AM Procedure start : [email or web address] 09: AM Time: : Oxygen on at 2 L/min per nasal cannula by Elaine Pryor RN [email or web address] 09:23 AM Time: :23 Versed 2 mg Intravenous Given by Elaine Pryor RN [email or web address] : AM Time: : Fentanyl 50 mcg Intravenous Given by Elaine Pryor RN [email or web address] 09:24 AM Time: :23 Patient comfortable and pain free: Yes [email or web address] 09:24 AM Time: :24LOC: 4 = Oriented but drowsy [email or web address] 09:25 AM Pressure channel 1 zeroed. 09:28 AM HR=59 bpm, FXZG=969/68 mmhg, SpO2=97.0 %, Comment=NSR 09: AM Time out performed according to hospital policy [email or web address] :29 AM Time: :29 0.5 ml Lidocaine 2% to right radial Subcutaneous [email or web address] AM Time: :29 Versed 2 mg Intravenous Given by Elaine Pryor RN [email or web address] 09:30 AM Time: 09:30 Fentanyl 25 mcg Intravenous Given by Elaine Pryor RN [email or web address] 09:30 AM Recorded ECG: HR=55 Condition=Condition 1 09:33 AM HR=57 bpm, CFXT=585/66 mmhg, SpO2=95.0 %, Comment=NSR 09:33 AM Unsuccessful access attempt # 1 into the right Radial artery. Manual pressure applied to achieve hemostasis.. [email or web address] 09:35 AM Access obtained by percutaneous puncture. 6Fr 10cm Terumo Glidesheath sheath placed in right Radial artery. [id number] [email or web address] 09:35 AM Time: 09:35 Patient given 4,000 units Heparin, 200 mcg Nitroglycerin, and 2.5 mg Verapamil Intraarterial by Aubrey Cohen MD, [facility]. This is given to reduce risk of vessel spasm and thrombosis. [email or web address] 09:36 AM 0.035 260cm Navilyst 3mmJ wire [id number] [email or web address] 09:36 AM 5Fr TIG catheter inserted over the wire DNC [email or web address] 09:36 AM Pressure channel 1 zero failed. 09:36 AM Pressure channel 1 zeroed. 09:36 AM Pressure channel 1 zero failed. 09:36 AM Pressure channel 1 zeroed. 09:38 AM RCA angiography performed in multiple views. [email or web address] 09:38 AM Recorded Pressure: Ao, HR=65, Condition=Condition 1 (Aorta) Ao 93/78/86 09:38 AM HR=64 bpm, FFNF=335/60 mmhg, SpO2=95.0 %, Comment=NSR 09:38 AM Coronary Dominance: right [email or web address] 09:38 AM LCA angiography performed in multiple views. [email or web address] 09:39 AM Recorded Pressure: Ao, HR=66, Condition=Condition 1 (Aorta) Ao 95/80/88 09:39 AM Time: 09:24LOC: 4 = Oriented but drowsy [email or web address] 09:39 AM Time: 09:24 Patient comfortable and pain free: Yes [email or web address] 09:41 AM Catheter removed [email or web address] 09:42 AM Lesion found in Mid RCA. Pre Stenosis: 15 Pre JAMILAH Flow: 3: Complete and Brisk Flow/Perfusion [email or web address] 09:42 AM Catheter selectively placed in left ventricle [email or web address] 09:42 AM Bolus angiogram of left Ventricle complete: 10 ml/sec for a total of 20 mls [email or web address] 09:42 AM Recorded Pressure: LV, HR=64, Condition=Condition 1 (Left Ventricle) LV 83/18/29 09:42 AM Recorded Pressure: LV, HR=63, Condition=Condition 1 (Left Ventricle) LV 99/20/28 09:43 AM HR=61 bpm, RJFV=978/57 mmhg, SpO2=95.0 %, Comment=NSR 09:44 AM Catheter removed [email or web address] 09:44 AM Procedure completed at 09:44 [email or web address] 09:44 AM Did you address JAMILAH flow and Dominance? Yes [email or web address] 09:48 AM HR=53 bpm, REIC=506/63 mmhg, SpO2=95.0 % 09:49 AM Sign out completed: Radiation Dose 146.75 mGy Fluoro Time: 1.7 Isovue 370 - 200ml contrast 43 ml given by Aubrey Cohen MD, [facility]. Complications: NoneCardiac Rehab Consult needed: NoConfirmed administered medications: Yes [email or web address] 09:49 AM Isovue 370 - 200ml,1 Bottle(s) used. [email or web address] 09:49 AM Arterial sheath pulled, Vasc Band closure device used and was Successful S/N. [email or web address] 09:49 AM 11 ml air in Vasc Band. [email or web address] 09:49 AM Estimated Blood Loss: minimal [email or web address] 09:49 AM Post ECG NSR [email or web address] 09:49 AM Post Blood Pressure 103/63 [email or web address] 09:50 AM 09:49 Post Pulses Rt Radial 2+ [email or web address] 09:50 AM Information taught Cardiac Cath and Vasc Band [email or web address] 09:50 AM Education needs Procedure, Plan of Care, and Disease Process [email or web address] 09:50 AM Learning barriers :None [email or web address] 09:50 AM Education Methods Verbal [email or web address] 09:50 AM Education evaluation Able to repeat information [email or web address] 09:50 AM Site status No bleeding/hematoma - Rt Wrist as reported by Milli Johnson RT (R) at 09:50 [email or web address] 09:50 AM Delay to floor No [email or web address] 09:50 AM Family placed in consult room. [email or web address] 09:50 AM Complications: None [email or web address] 09:50 AM Fluoro Time: 1.7 [email or web address] 09:50 AM Isovue 370 - 200ml contrast [address] Cohen. [email or web address] 09:51 AM Radiation Dose 146.75 mGy [email or web address] 09:53 AM Report given to Temi BOLES Pt taken to 3B Room #34. 09:53 [email or web address] 09:54 AM Time: 09:39 Patient comfortable and pain free: Yes [email or web address] 09:58 AM Patient out of room: 09:58 [email or web address] Complications Complication None None None Hemodynamics Pressures Site Systolic/A Wave Diastolic/V Wave Mean AO 93 78 86 AO 95 80 88 LV 83 18 29 LV 99 20 28 Post Procedure Information Blood Pressure: 103/63 mmHg Rhythm: NSR Post procedural instructions were given Closure Device Time Device Success/Fail 10/01/2017 9:51:00 AM Mechanical Compression 11 Site Checks Time Location Status Staff Sheath In? Note 09:50 AM Rt Wrist No bleeding/hematoma Milli Johnson RT (R) Pulses Time Site Pre-Procedure Post-Procedure Note Bilateral DP & PT 1+ Bilateral radial 2+ 9:49:00 AM Rt Radial 2+ Updated by Aishwarya Leon RT(R) on 10/01/2017 9:58:07 AM electronically signed on 10/01/2017 9:58:36 AM with status of Final
[2017-10-01] MEDS: levoFLOXacin 750 MG TABLET PO SCH (10:19)
[2017-10-01 15:57] VITALS: BP 106/61
--- NOTE | 2017-10-01 16:07 | Discharge Summary ---
- NOTES TO OUTPATIENT PROVIDER Notes to Outpatient Provider: Patient admitted for syncope and chest pain workup. No syncopal events while inpatient. Chest pain has subsided. Stress test positive for ischemia; left heart catheter completed finding minimal occlusive disease requiring no intervention. Patient reports that he has a follow-up with cardiology. Patient is to follow-up with cardiology for monitor placement to further assess for causes of syncope. Orders not resulted at time of discharge: Pending orders 09/30/17 11:45 NM erik perf SPECT multi [NM] Routine 09/30/17 15:42 CL Cardiac Catheterization [CL] Routine Date of Encounter: 10/01/17 Time of Encounter: 16:05 - Discharge Diagnosis (1) Chest pain Priority: Primary Status: Acute Assessment and Plan: Patient admits to chest pain at times. Not expressing any chest pain now. Denies any chest pain during syncopal events. He was noted to have 2 syncopal events throughout the last week. EKG shows sinus bradycardia with no ST changes. Continues to have episodes of bradycardia. He is not on any AV delgado blocking medications. He remains hemodynamically stable. Has not had any syncopal events since admission. Cardiology has signed off. CT of head negative for acute ischemia Carotid duplex completed showing 40-59% stenosis in the right proximal and mid internal carotid artery, left carotid artery essentially normal TTE completed-preserved ejection fraction Stress test yesterday positive for ischemia Left heart catheter today shows mild nonobstructive CAD Overall, the patient has had a negative workup. Patient is medically safe for discharge at this time as he has had no syncopal events while inpatient, and workup thus far has been unremarkable. He has been instructed to follow up with primary care provider and cardiology. He has been informed that he will likely need Holter monitor placement to further assess for cause of syncope. Qualifiers: Chest pain type: unspecified Qualified Code(s): R07.9 - Chest pain, unspecified (2) Symptomatic bradycardia Priority: Secondary Status: Acute Assessment and Plan: Witnessed syncopal events No prior history of bradycardia TSH normal, avoid AV delgado blockers per cardiology and consider Holter monitor at discharge (3) Syncope Priority: Secondary Status: Acute Assessment and Plan: Patient has had 2 syncopal events over the last week TTE shows preserved EF with no significant valvular disease Orthostatic negative Patient underwent a stress test this afternoon was found to have ischemia; cardiac mediated syncope Qualifiers: Syncope type: unspecified Qualified Code(s): R55 - Syncope and collapse (4) Anxiety Priority: Secondary Status: Chronic Assessment and Plan: Continue anxiolytics (5) Puncture wound of foot Priority: Secondary Status: Acute Assessment and Plan: Patient reports that he stepped on a nail couple of days ago and has a puncture wound of the foot Was given tetanus series at [facility]; antibiotics no started at that time Start patient on Levaquin 750 mg by mouth daily 5 days for prophylaxis Qualifiers: Laterality: unspecified laterality Qualified Code(s): S91.339A - Puncture wound without foreign body, unspecified foot, initial encounter Hospital course: Mr. Noel is a 46 year old male is seen assessment and plan for hospital course Discharge discussed with: patient, nurse, direct sales consultant - Time Spent with Patient Total time spent providing and/or coordinating discharge services: Greater than 30 minutes - Discharge Medications Home Medications: Escitalopram [Lexapro] 10 mg PO DAILY 09/29/17 [History] Gabapentin [Neurontin] 300 mg PO TID PRN 09/29/17 [History] Pantoprazole Sodium [Protonix] 40 mg PO DAILY 09/29/17 [History] Tramadol HCl [Ultram] 50 mg PO TID PRN 09/29/17 [History] Allergies/Adverse Reactions: 3 Allergy/AdvReac Type Severity Reaction Status Date / Time No Known Allergies Allergy Verified 09/29/17 15:01 Date of admission: 09/29/17 16:08 Primary care physician: PCP NONE Consults: 09/29/17 16:37 Consult to Physician [CONS] Routine Consulting Provider: Isabella Arias Reason for Consult: syncope Call Completed: No 09/30/17 15:44 Consult to Cardiology [CONS] Routine Comment: Consulting Provider: Cardiology Deale Reason for Consult: syncope, positive orthostasis Time Notified: 15:45 Call Completed: Yes Discharging clinician: Lenny Paul Anticipated date of discharge: 10/01/17 - Constitutional Vitals: Temp Pulse Resp BP Pulse Ox 97.8 F 55 16 106/61 98 10/01/17 15:56 10/01/17 15:56 10/01/17 15:56 10/01/17 15:56 10/01/17 15:56 General appearance: Present: A&O X 3 - Head Head exam: Present: atraumatic, normocephalic - Eye Eye exam: Present: PERRL, conjuntiva pink, sclera anicteric Pupils: Present: PERRL - Neck Neck exam general surgery: Present: supple, trachea midline. Absent: lymphadenopathy - Respiratory Respiratory exam: Present: CTAB. Absent: accessory muscle use, rales, rhonchi, wheezes - Cardiovascular Cardiovascular exam: Present: RRR, +S1, +S2. Absent: diastolic murmur, gallop, rubs, systolic murmur - GI/Abdominal GI/Abdominal exam: Present: normal bowel sounds, soft, no peritoneal signs. Absent: distended, tenderness - Extremities Exam Extremities exam: Present: warm, radial pulses palpable and symmetrical. Absent : calf tenderness, cyanotic, pedal edema - Neurological Exam Neurological exam: Present: CN II-XII intact, oriented X3, no focal deficits. Absent: pronater drift, facial droop, speech deficit - Skin Skin exam: Present: dry, intact - Patient Status Disposition: Home, Self-Care Condition: Fair Overall status at discharge: patient is back to baseline - Discharge Instructions Follow Up With: NONE,PCP [Primary Care Provider] - Radha Estraad [Family Provider] -
== END 2017-10-01 17:10 | disposition home or self-care (01) ==
LOC: 3BNU 13:14 → EMEROO 13:14 → 3BNU 17:41
PROVIDERS: ADMIT Internal Medicine; ATTEND Internal Medicine

== ENCOUNTER 2021-10-03 16:03 | Observation (INO) ==
[2021-10-04] MEDS ORDERED: Nitroglycerin 0.4 MG TAB.SUBL SL PRN (00:11)
[2021-10-04] MEDS ORDERED: Morphine Sulfate 2 MG/ML SYRINGE IVP PRN (00:11)
[2021-10-04] MEDS ORDERED: Perflutren Lipid Microsphere 1.3 ML in 0.9 % Sodium Chloride 8.7 ML IVP PRN (00:14)
[2021-10-04] MEDS ORDERED: Melatonin 3 MG TABLET PO PRN (00:19)
[2021-10-04] MEDS ORDERED: Naloxone 0.4 MG/ML INJ IVP PRN (00:19)
[2021-10-04] MEDS ORDERED: Acetaminophen 325 MG TABLET PO PRN (00:19)
[2021-10-04 00:35] LABS: Basophils # 0.1 K/mcL (0.0-0.2); Basophils % 0.9 %; Eosinophils # 0.3 K/mcL (0.0-0.6); Eosinophils % 4.4 %; Hemoglobin 14.5 g/dL (12.9-16.9); Immature Granulocytes % 0.4 % (0-4); Lymphocytes # 2.4 K/mcL (0.6-4.6); Lymphocytes % 32.2 %; Mean Corpuscular HGB Conc 33.7 g/dL (31.6-35.5); Mean Corpuscular Hemoglobin 32.7 pg (28.0-33.3); Mean Corpuscular Volume 97.1 fL (83.0-100.0); Mean Platelet Volume 10.5 fL (9.4-12.4); Monocytes # 0.6 K/mcL (0.0-1.3); Monocytes % 8.1 %; Neutrophils # 4.1 K/mcL (1.6-8.9); Platelet Count 190 K/mcL (140-400); Red Blood Count 4.43 M/mcL (4.19-5.50); White Blood Count 7.6 K/mcL (4.3-11.1)
[2021-10-04 00:54] LABS: % Iron Saturation 33 % (20-55); Iron 96 mcg/dL (65-175); Transferrin 205 mg/dL (203-362)
[2021-10-04 00:56] LABS: Bilirubin,Urine Negative (Negative); Blood,Urine Negative (Negative); Clarity,Urine Clear (Clear); Color,Urine Light-Yellow (Yellow); Glucose,Urine (UA) Normal (Normal); Ketones,Urine Negative (Negative); Leukocyte Esterase,Urine Negative (Negative); Nitrite,Urine Negative (Negative); PH,Urine 6.5 pH Units (5.0-8.0); Protein,Urine Negative (Neg-Trace); Specific Gravity,Urine 1.023 (1.010-1.025); Urobilinogen,Urine Normal (Normal)
[2021-10-04 00:57] LABS: Alanine Aminotransferase 15 Units/L (7-52); Albumin 3.8 g/dL (3.5-5.7); Albumin/Globulin Ratio 1.7 (1.1-2.2); Alkaline Phosphatase 47 Units/L (34-104); Aspartate Amino Transferase 17 Units/L (13-39); BUN/Creatinine Ratio 17 (6-26); Bilirubin,Total 0.5 mg/dL (0.3-1.0); Blood Urea Nitrogen 15 mg/dL (6-20); Calcium 8.5 mg/dL (8.6-10.3); Carbon Dioxide 24 mEq/L (23-29); Chloride 107 mEq/L (98-107); Chol/HDL Ratio 3.4 (0-4.9); Cholesterol 176 mg/dL (< 200); Globulin 2.2 g/dL (2.4-3.5); Glucose 145 mg/dL (70-105); HDL Cholesterol 52 mg/dL (40-59); LDL Cholesterol,Calculated 100 mg/dL (< 100); Magnesium 1.8 mg/dL (1.6-2.6); Osmolality,Calculated 289 (280-300); Potassium 3.6 mEq/L (3.5-5.1); Sodium 138 mEq/L (136-145); Triglycerides 120 mg/dL (< 150); eGFR For African Americans > 60 (> 60); eGFR For Non-African Americans > 60 (> 60)
[2021-10-04 01:03] LABS: Amphetamine Screen,Urine Negative ng/mL (Cutoff=1000); Barbiturate Screen,Urine Negative ng/mL (Cutoff=200); Benzodiazepines Screen,Urine Negative ng/mL (Cutoff=200); Cannabinoid Screen,Urine Negative ng/mL (Cutoff = 50); Cocaine Screen,Urine Negative ng/mL (Cutoff= 300); Opiate Screen,Urine Negative ng/mL (Cutoff=300); Phencyclidine Screen,Urine Negative ng/mL (Cutoff=25)
[2021-10-04 02:27] LABS: Folate 12.2 ng/mL (3.0-16.0); Thyroid Stimulating Hormone 2.092 mcIU/mL (0.340-5.600)
[2021-10-04] MEDS: *HR* Heparin 5,000 UNIT/ML VIAL SQ SCH ×3 (05:55→22:10)
[2021-10-04 06:17] LABS: Estimated Average Glucose 120 mg/dl; Hemoglobin A1C 5.8 %
[2021-10-04] MEDS: Aspirin Enteric Coated 81 MG Tablet PO SCH (08:36)
[2021-10-04] MEDS: Metoprolol XL (24 HR) Succ 25 MG TAB.ER.24H PO SCH (11:12)
[2021-10-04] MEDS: Nicotine 21 MG PATCH.TD24 TD SCH (20:09)
[2021-10-05 01:48] LABS: Basophils # 0.1 K/mcL (0.0-0.2); Eosinophils # 0.4 K/mcL (0.0-0.6); Eosinophils % 4.7 %; Hematocrit 44.7 % (37.5-50.1); Immature Granulocytes % 0.5 % (0-4); Lymphocytes # 2.5 K/mcL (0.6-4.6); Lymphocytes % 31.3 %; Mean Corpuscular HGB Conc 33.6 g/dL (31.6-35.5); Mean Corpuscular Hemoglobin 32.8 pg (28.0-33.3); Mean Corpuscular Volume 97.6 fL (83.0-100.0); Mean Platelet Volume 10.5 fL (9.4-12.4); Monocytes # 0.9 K/mcL (0.0-1.3); Monocytes % 10.6 %; Neutrophils # 4.2 K/mcL (1.6-8.9); Platelet Count 202 K/mcL (140-400); Red Blood Count 4.58 M/mcL (4.19-5.50); Red Cell Distribution Width 11.9 % (11.5-14.5); Segmented Neutrophils % 51.9 %; White Blood Count 8.1 K/mcL (4.3-11.1)
[2021-10-05 02:13] LABS: BUN/Creatinine Ratio 20 (6-26); Blood Urea Nitrogen 22 mg/dL (6-20); Calcium 8.8 mg/dL (8.6-10.3); Carbon Dioxide 24 mEq/L (23-29); Chloride 106 mEq/L (98-107); Glucose 99 mg/dL (70-105); Osmolality,Calculated 293 (280-300); Potassium 4.1 mEq/L (3.5-5.1); Sodium 140 mEq/L (136-145); eGFR For African Americans > 60 (> 60); eGFR For Non-African Americans > 60 (> 60)
[2021-10-05 02:14] LABS: Alanine Aminotransferase 14 Units/L (7-52); Albumin 3.9 g/dL (3.5-5.7); Albumin/Globulin Ratio 1.8 (1.1-2.2); Alkaline Phosphatase 51 Units/L (34-104); Aspartate Amino Transferase 16 Units/L (13-39); BUN/Creatinine Ratio 20 (6-26); Bilirubin,Total 0.3 mg/dL (0.3-1.0); Blood Urea Nitrogen 22 mg/dL (6-20); Calcium 8.8 mg/dL (8.6-10.3); Carbon Dioxide 24 mEq/L (23-29); Chloride 106 mEq/L (98-107); Globulin 2.2 g/dL (2.4-3.5); Glucose 99 mg/dL (70-105); Osmolality,Calculated 293 (280-300); Potassium 4.1 mEq/L (3.5-5.1); Sodium 140 mEq/L (136-145); Total Protein 6.1 g/dL (6.4-8.9); eGFR For African Americans > 60 (> 60); eGFR For Non-African Americans > 60 (> 60)
[2021-10-05 03:23] LABS: Estimated Average Glucose 117 mg/dl; Hemoglobin A1C 5.7 %
[2021-10-05] MEDS: *HR* Heparin 5,000 UNIT/ML VIAL SQ SCH (04:53)
[2021-10-05] MEDS ORDERED: Regadenoson 0.4 MG/5 ML SYRINGE IVP ONE (06:18)
[2021-10-05] MEDS: Aspirin Enteric Coated 81 MG Tablet PO SCH (09:56)
[2021-10-05] MEDS: Metoprolol XL (24 HR) Succ 25 MG TAB.ER.24H PO SCH (09:56)
[2021-10-05] MEDS: Nicotine 21 MG PATCH.TD24 TD SCH (09:57)
[2021-10-05 10:45] VITALS: BP 108/58; PULSE 67; TEMP 97.5; O2SAT 99
== END 2021-10-05 14:40 | disposition home or self-care (01) ==
LOC: 3BNU → SUATTDRO 21:08
PROVIDERS: ADMIT Internal Medicine; ATTEND Family Medicine